=== PATIENT | female | born 1985 | race Caucasian/White ===

== ENCOUNTER 2016-04-28 22:43 | Emergency (ER) | payer MEDICAID ==
[2016-04-29] MEDS ORDERED: NORMAL SALINE 1000 ML 1,000 ML IV ONE (02:44)
[2016-04-29] MEDS ORDERED: ONDANSETRON HCL INJ/PF 4 MG/2 ML SDV IV ONE (02:44)
[2016-04-29] MEDS ORDERED: MORPHINE SULFATE 10 MG/ML INJ IV ONE (02:45)
--- NOTE | 2016-04-29 02:45 | ER Document Report ---
ED GI/ - General Mode of Arrival: Ambulatory Information source: Patient TRAVEL OUTSIDE OF THE [place] IN LAST 30 DAYS: No - HPI Patient complains to provider of: Other - see above Timing/Duration: Persistent Associated symptoms: Other - see narrative Similar symptoms previously: No Recently seen / treated by doctor: Yes <KARRIE ALEJANDRA - Last Filed: 04/29/16 04:18> <ZHANE ELLISON - Last Filed: 04/29/16 05:18> - General Chief Complaint: Nausea/Vomiting Stated Complaint: VOMITING/STOMACH ACHE Notes: Patient is a 31-year-old female that presents to the emergency department today with complaints of diffuse abdominal pain, vomiting, and diarrhea. Patient states her abdominal pain began first followed by the nausea, vomiting, and diarrhea. Patient states she has been on prednisone for a few weeks secondary to hives. Patient is currently taking phentermine for weight loss and was prescribed Prozac 2 days ago. Patient denies any recent illnesses, sick contacts, recent travel, or being . (KARRIE ALEJANDRA) - Related Data Allergies/Adverse Reactions: No Known Allergies Allergy (Verified 04/28/16 23:06) Past Medical History - General Information source: Patient, [facility] Records - Social History Smoking Status: Current Every Day Smoker Cigarette use (# per day): Yes Frequency of alcohol use: None Drug Abuse: None Lives with: Family Family History: Reviewed & Not Pertinent, Arthritis, CAD, CVA, DM, Hyperlipidemia, Hypertension Patient has suicidal ideation: No Patient has homicidal ideation: No Pulmonary Medical History: Reports: Hx Bronchitis Psychiatric Medical History: Reports: Hx Anxiety, Hx Depression Past Surgical History: Reports: Hx Adenoidectomy, Hx Oral Surgery - wisdom teeth , Hx Tonsillectomy - Immunizations Immunizations up to date: No Hx Diphtheria, Pertussis, Tetanus Vaccination: No <KARRIE ALEJANDRA - Last Filed: 04/29/16 04:18> Review of Systems - Review of Systems Constitutional: No symptoms reported EENT: No symptoms reported Cardiovascular: No symptoms reported Respiratory: No symptoms reported Gastrointestinal: See HPI, Abdominal pain, Diarrhea, Vomiting Genitourinary: No symptoms reported Female Genitourinary: No symptoms reported Musculoskeletal: No symptoms reported Skin: No symptoms reported Hematologic/Lymphatic: No symptoms reported Neurological/Psychological: No symptoms reported -: Yes All other systems reviewed and negative <KARRIE ALEJANDRA - Last Filed: 04/29/16 04:18> Physical Exam <KARRIE ALEJANDRA - Last Filed: 04/29/16 04:18> <ZHANE ELLISON - Last Filed: 04/29/16 05:18> - Vital signs Vitals: Temp Pulse Resp BP Pulse Ox 97.3 F 102 H 18 96/80 L 100 04/28/16 22:55 04/28/16 22:55 04/28/16 22:55 04/28/16 22:55 04/28/16 22:55 (KARRIE ALEJANDRA) (ZHANE ELLISON) - Notes Notes: Physical Exam: General: Alert, appears well. HEENT: Normocephalic. Atraumatic. PERRL. Extraocular movements intact. Oropharynx clear. Neck: Supple. Non-tender. Respiratory: No respiratory distress. Clear and equal breath sounds bilaterally. Cardiovascular: Regular rate and rhythm. Abdominal: Epigastric tenderness with palpation. No distension. Normal Bowel Sounds. Back: Non-tender. No deformity or step off. Extremities: Moves all four extremities. Upper extremities: Normal inspection. Non-tender. Normal color. Normal ROM. Normal temperature. Lower extremities: Normal inspection. Non-tender. No edema. Normal color. Normal ROM. Normal temperature. Neurological: Normal cognition. AAOx4. Normal speech. Psychological: Normal affect. Normal Mood. Skin: Warm. Dry. Normal color. (KARRIE ALEJANDRA) Course - Laboratory Result Diagrams: 04/29/16 03:05 04/29/16 03:05 <KARRIE ALEJANDRA - Last Filed: 04/29/16 04:18> - Laboratory Result Diagrams: 04/29/16 03:05 04/29/16 03:05 <ZHANE ELLISON - Last Filed: 04/29/16 05:18> - Re-evaluation Re-evalutation: 04/29/16 05:17 Patient feels better. Tolerating by mouth. No further abdominal pain. Likely viral illness. Stable for discharge home. Return if any worsening or concerning symptoms. Understands agrees with plan. (ZHANE ELLISON) - Vital Signs Vital signs: Temp Pulse Resp BP Pulse Ox 97.7 F 86 16 112/57 L 98 04/29/16 02:01 04/29/16 02:01 04/29/16 02:01 04/29/16 02:01 04/29/16 02:01 (KARRIE ALEJANDRA) (ZHANE ELLISON) - Laboratory Laboratory results interpreted by me: 04/29/16 04/29/16 03:05 03:05 WBC 13.1 H RBC 5.85 H Hgb 16.7 H Hct 49.8 H RDW 14.2 H Seg Neutrophils % 78.7 H Absolute Neutrophils 10.4 H BUN 24 H Lipase < 10.0 L (ZHANE ELLISON) Discharge <KARRIE ALEJANDRA - Last Filed: 04/29/16 04:18> <ZHANE ELLISON - Last Filed: 04/29/16 05:18> - Discharge Clinical Impression: Vomiting Qualifiers: Vomiting type: unspecified Vomiting Intractability: non-intractable Nausea presence: with nausea Qualified Code(s): R11.2 - Nausea with vomiting, unspecified Diarrhea Qualifiers: Diarrhea type: unspecified type Qualified Code(s): R19.7 - Diarrhea, unspecified Condition: Stable Disposition: HOME, SELF-CARE Instructions: Vomiting ([facility]), Diarrhea, Nonspecific ([facility]) Prescriptions: Ondansetron [Zofran Odt 4 mg Tablet] 1 - 2 tab PO Q4H PRN #15 tab.rapdis PRN Reason: For Nausea/Vomiting Forms: Return to Work Scribe Attestation: 04/29/16 05:18 I personally performed the services described in the documentation, reviewed and edited the documentation which was dictated to the scribe in my presence, and it accurately records my words and actions. (ZHANE ELLISON) Scribe Documentation - Scribe Written by Virginie:: Virginie Lemus, [id number] 04/29/2016 acting as scribe for :: Brissa <KARRIE ALEJANDRA - Last Filed: 04/29/16 04:18>
[2016-04-29 03:21] LABS: ABSOLUTE EOSINOPHILS # (AUTO) 0.1 10^3/uL (0.0-0.6); ABSOLUTE LYMPHOCYTES (AUTO) 2.2 10^3/uL (0.5-4.7); ABSOLUTE MONOCYTES (AUTO) 0.5 10^3/uL (0.1-1.4); ABSOLUTE NEUT (AUTO) 10.4 10^3/uL (1.7-8.2); BASOPHILS % (AUTO) 0.2 % (0-2); EOSINOPHILS % (AUTO) 1.1 % (0-6); HEMATOCRIT 49.8 % (36.0-47.0); HEMOGLOBIN 16.7 g/dL (12.0-15.5); HGB HCT DIFFERENCE 0.3; LYMPHOCYTES % (AUTO) 16.5 % (13-45); MEAN CORPUSCULAR HEMOGLOBIN 28.5 pg (27.0-33.4); MEAN CORPUSCULAR HGB CONC 33.5 g/dL (32.0-36.0); MEAN CORPUSCULAR VOLUME 85 fl (80-97); MONOCYTES % (AUTO) 3.5 % (3-13); RED BLOOD COUNT 5.85 10^6/uL (3.72-5.28); RED CELL DISTRIBUTION WIDTH 14.2 % (11.5-14.0); SEGMENTED NEUTROPHILS % (AUTO) 78.7 % (42-78); WHITE BLOOD COUNT 13.1 10^3/uL (4.0-10.5)
[2016-04-29 03:33] LABS: ALANINE AMINOTRANSFERASE 22 U/L (9-52); ALBUMIN 4.1 g/dL (3.5-5.0); ALKALINE PHOSPHATASE 77 U/L (38-126); ANION GAP 11 (5-19); ASPARTATE AMINO TRANSFERASE 14 U/L (14-36); BILIRUBIN,TOTAL 0.9 mg/dL (0.2-1.3); BLOOD UREA NITROGEN 24 mg/dL (7-20); CALCIUM 9.3 mg/dL (8.4-10.2); CARBON DIOXIDE 29 mmol/L (22-30); CHLORIDE 101 mmol/L (98-107); GLUCOSE 95 mg/dL (75-110); POTASSIUM 4.1 mmol/L (3.6-5.0); SODIUM 141.2 mmol/L (137-145); TOTAL PROTEIN 6.5 g/dL (6.3-8.2)
[2016-04-29 03:58] LABS: ALCOHOL < 10 mg/dL (NONE DETECTED); LIPASE < 10.0 U/L (23-300)
[2016-04-29 04:35] LABS: APPEARANCE,URINE SLIGHTLY-CLOUDY; BILIRUBIN,URINE NEGATIVE (NEGATIVE); GLUCOSE, URINE NEGATIVE (NEGATIVE); KETONES,URINE NEGATIVE (NEGATIVE); LEUKOCYTE ESTERASE,URINE NEGATIVE (NEGATIVE); NITRITE,URINE NEGATIVE (NEGATIVE); PROTEIN,URINE NEGATIVE (NEGATIVE); URINE SPECIFIC GRAVITY 1.029; UROBILINOGEN,URINE NEGATIVE mg/dL (<2.0)
[2016-04-29] MEDS ORDERED: ONDANSETRON ODT 4 MG TAB (6 TAB/DSPK) PO PRN (05:15)
[2016-04-29 05:44] VITALS: BP 95/45
== END 2016-04-29 05:25 | disposition home or self-care (01) ==
LOC: ER 22:43
DX: R11.2 Nausea with vomiting, unspecified (principal); R19.7 Diarrhea, unspecified; R10.9 Unspecified abdominal pain; F17.210 Nicotine dependence, cigarettes, uncomplicated
CPT/HCPCS: 99284; 96361; 96374; 96375; 36415; 80307; 84702; 83690; 85025; 80053; 81001; J2270; J2405; J7030

== ENCOUNTER 2017-07-25 16:57 | Emergency (ER) | payer MEDICAID ==
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
[2017-07-25] MEDS ORDERED: DEXAMETHASONE SOD PHOS INJ 10 MG/1 ML VIAL IM ONE (19:26)
[2017-07-25] MEDS ORDERED: KETOROLAC TROMETHAMINE INJ/PF 30 MG/1 ML SDV IM ONE (19:26)
--- NOTE | 2017-07-25 19:45 | RADIOLOGY REPORT (SQ) ---
EXAM DESCRIPTION: HIP LEFT AP/LATERAL COMPLETED DATE/TIME: 07/25/2017 7:29 pm REASON FOR STUDY: pain getting worse for several days COMPARISON: None. NUMBER OF VIEWS: Two views. TECHNIQUE: AP pelvis and additional frog-leg view of the left hip. LIMITATIONS: None. FINDINGS: MINERALIZATION: Normal. PRIMARY HIP: No fracture or dislocation. No worrisome bone lesions. OPPOSITE HIP: No fracture or dislocation. No worrisome bone lesions. PUBIS AND ISCHIUM: No fracture. PELVIS: No fracture. SACRUM: No fracture or dislocation. No worrisome bone lesions. LOWER LUMBAR SPINE: No fracture or dislocation. No worrisome bone lesions. No significant disc disea se. SOFT TISSUES: No findings. OTHER: No other significant finding. IMPRESSION: NEGATIVE STUDY OF THE LEFT HIP AND PELVIS. NO ACUTE POST-TRAUMATIC CHANGES. NO EXPLANAT ION FOR PAIN. TECHNICAL DOCUMENTATION: JOB ID: [id number] [employer]- All Rights Reserved Reading location - IP/workstation name: [email or web address]
--- NOTE | 2017-07-25 19:46 | RADIOLOGY REPORT (SQ) ---
EXAM DESCRIPTION: L SPINE WHOLE COMPLETED DATE/TIME: 07/25/2017 7:29 pm REASON FOR STUDY: pain getting worse for several days COMPARISON: None. NUMBER OF VIEWS: Five views including obliques. TECHNIQUE: AP, lateral, oblique, and sacral radiographic images acquired of the lumbar spine. LIMITATIONS: None. FINDINGS: MINERALIZATION: Normal. SEGMENTATION: Normal. No transitional anatomy. ALIGNMENT: Normal. VERTEBRAE: Maintained height. No fracture or worrisome bone lesion. DISCS: Preserved height. No significant osteophytes or end plate irregularity. POSTERIOR ELEMENTS: Pedicles and facets are intact. No pars defect or posterior arch defects. HARDWARE: None in the spine. PARASPINAL SOFT TISSUES: Normal. PELVIS: Intact as visualized. No fractures or worrisome bone lesions. SI joints intact. OTHER: No other significant finding. IMPRESSION: NORMAL 5 VIEW LUMBAR SPINE. TECHNICAL DOCUMENTATION: JOB ID: [id number] [employer]- All Rights Reserved Reading location - IP/workstation name: [email or web address]
[2017-07-25 20:07] VITALS: BP 114/57
== END 2017-07-25 20:10 | disposition home or self-care (01) ==
LOC: ER 16:57
DX: O9A.23 Injury, poisoning and certain other consequences of external causes complicating the puerperium (principal); M25.552 Pain in left hip; M54.5 Low back pain; Y93.89 Activity, other specified; F17.210 Nicotine dependence, cigarettes, uncomplicated
CPT/HCPCS: 72110; 99283; 99406